=== PATIENT | male | born 1955 | race Caucasian/White ===

== ENCOUNTER 2024-02-29 10:42 | Outpatient (CLI) | payer OTHER, SELFPAY ==
[2024-02-29 10:49] VITALS: BMI 27.8
--- NOTE | 2024-02-29 10:51 | ECG_ITS ---
[facility] Test Date: 2024-02-29 Pat Name: Jose J Hope Department: Room: Gender: Male Enrollment Management Coordinator: Ankush Albright : 1955 Requested By: Mariela Toro Order Number: [id number] Calixto MD: Marc Roberts M.D. Interpretive Statements NAME OF STUDY: TREADMILL STRESS TEST INDICATION: [fatigue/arrythmia, ] EXERCISE DATA: The patient was exercised by Hari protocol. Baseline heart rate was 69 beats per minute. Baseline blood pressure was 168/82 millimeters of mercury. Maximal predicted heart rate was 151 beats per minute. Maximum heart rate achieved was 154 which was 101% of the maximum predicted heart rate. Maximum blood pressure was 194/77 millimeters of mercury. Total exercise time was 8 minutes and 59 seconds. Maximum METs achieved was 10.2. The reason for ending the test was maximal effort achieved. The patient complained of shortness of breath during the stress test, which then resolved at the end of the test. ELECTROCARDIOGRAM: BASELINE: Showed sinus rhythm, normal axis, no significant ST-T changes at the baseline noted. [] EXERCISE: At the peak exercise level, [] No significant ST-T changes suggestive of ischemia noted. [] RECOVERY: During the recovery period, heart rate dropped appropriately. No significant ST-T changes in the recovery suggestive of ischemia noted. [] CONCLUSION: 1. Exercise capacity is good. 2. Heart rate response was appropriate 3. Blood pressure response was appropriate 4. Symptoms not suggestive of ischemia. 5. Stress test does not show evidence of ischemia. Electronically Signed On 03-03-2024 11:48:11 CDT by Marc Roberts M.[email or web address]
[2024-02-29 11:16] VITALS: BP 161/51; PULSE 98
== END 2024-02-29 10:43 | disposition home or self-care (01) ==
LOC: CDL 10:43
PROVIDERS: PCP Nurse Practitioner; Visit Provider Nurse Practitioner
DX: I49.9 Cardiac arrhythmia, unspecified (principal)
CPT/HCPCS: 93017